=== PATIENT | female | born 1950 | race Caucasian/White ===

== ENCOUNTER → 2017-03-24 | Outpatient (CLI) | payer OTHER ==
[~2017-03-24] MED LIST: AMBIEN 10 MG TA10 MG PO; BYSTOLIC10 MG PO; COLACE 100 MG100 MG PO; COLACE100 MG PO; CRANBERRY500 M1 PO; CRESTOR10 MG PO; FOLIC ACID1 MG PO; HYDROCODON-ACE1 EAC7 PO; HYZAAR 50-12.51 EACH PO; IMDUR 60 MG TAB60 M1 PO; INVOKANA100 MG PO; JANUVIA100 MG PO; K-TAB10 MEQ PO; LANTUS100 UNIT/M SUBQ; LOSARTAN-HCTZ1 EAC3 PO; LOVAZA1000 MG PO; LYRICA 75 MG CA75 MG PO; MELOXICAM7.5 MG PO; METHOTREXATE 22.5 MG PO; NEURONTIN 300M300 M2 PO; NITROSTAT0.4 MG SL; PLAVIX 75 MG TA75 MG PO; PREVACID 30MG C30 M1 PO; TRAMADOL 50 MG50 MG PO; VITAMIN D31000 UNI2 PO; VOLTAREN GEL 1100 G2 TOP; ZOCOR80 MG PO
== END ==
LOC: HYPER 06:49
DX: T24.231A Burn of second degree of right lower leg, initial encounter (principal); E11.622 Type 2 diabetes mellitus with other skin ulcer; L97.811 Non-pressure chronic ulcer of other part of right lower leg limited to breakdown of skin; I70.238 Atherosclerosis of native arteries of right leg with ulceration of other part of lower leg; I10 Essential (primary) hypertension; I25.10 Atherosclerotic heart disease of native coronary artery without angina pectoris; I25.2 Old myocardial infarction; M19.90 Unspecified osteoarthritis, unspecified site; M06.9 Rheumatoid arthritis, unspecified; Z95.1 Presence of aortocoronary bypass graft; Z87.891 Personal history of nicotine dependence; Z79.84 Long term (current) use of oral hypoglycemic drugs; Z79.82 Long term (current) use of aspirin; X15.0XXA Contact with hot stove (kitchen), initial encounter; Y93.89 Activity, other specified; Y92.89 Other specified places as the place of occurrence of the external cause; Y99.8 Other external cause status

== ENCOUNTER → 2017-04-21 | Outpatient (CLI) | payer OTHER | LOC: HYPER 06:56 | DX: T24.301D Burn of third degree of unspecified site of right lower limb, except ankle and foot, subsequent encounter (principal); T31.0 Burns involving less than 10% of body surface; E11.622 Type 2 diabetes mellitus with other skin ulcer; L97.811 Non-pressure chronic ulcer of other part of right lower leg limited to breakdown of skin; I70.202 Unspecified atherosclerosis of native arteries of extremities, left leg; I10 Essential (primary) hypertension; Z79.84 Long term (current) use of oral hypoglycemic drugs; I25.10 Atherosclerotic heart disease of native coronary artery without angina pectoris; I25.2 Old myocardial infarction; M19.90 Unspecified osteoarthritis, unspecified site; M06.9 Rheumatoid arthritis, unspecified; Z95.1 Presence of aortocoronary bypass graft; Z87.891 Personal history of nicotine dependence; X08.8XXD Exposure to other specified smoke, fire and flames, subsequent encounter ==

== ENCOUNTER → 2017-05-05 | Outpatient (CLI) | payer OTHER | LOC: HYPER 06:57 | DX: E11.622 Type 2 diabetes mellitus with other skin ulcer (principal); L97.811 Non-pressure chronic ulcer of other part of right lower leg limited to breakdown of skin; I70.248 Atherosclerosis of native arteries of left leg with ulceration of other part of lower leg; L97.821 Non-pressure chronic ulcer of other part of left lower leg limited to breakdown of skin; I10 Essential (primary) hypertension; I25.10 Atherosclerotic heart disease of native coronary artery without angina pectoris; I25.2 Old myocardial infarction; M19.90 Unspecified osteoarthritis, unspecified site; M06.9 Rheumatoid arthritis, unspecified; Z87.891 Personal history of nicotine dependence; Z79.84 Long term (current) use of oral hypoglycemic drugs; Z95.1 Presence of aortocoronary bypass graft ==